=== PATIENT | female | born 1940 ===

== ENCOUNTER 2019-02-21 10:37 | Outpatient (CLI) | payer MEDICARE | END 2019-02-21 10:38 | disposition home or self-care (01) | LOC: C.DEXAIC 10:37 | DX: M81.0 Age-related osteoporosis without current pathological fracture (principal) ==

== ENCOUNTER 2019-02-21 10:49 | Outpatient (CLI) | payer MEDICARE | END 2019-02-21 10:50 | disposition home or self-care (01) | LOC: C.RADIC 10:49 | DX: M19.90 Unspecified osteoarthritis, unspecified site (principal) ==